=== PATIENT | male | born 1990 | race African-American/Black ===

== ENCOUNTER 2019-07-03 08:50 | Emergency (ER) | payer OTHER ==
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
[2019-07-03] MEDS ORDERED: 0.9 % SODIUM CHLORIDE 1,000 ML IV ONE (09:17)
[2019-07-03] MEDS ORDERED: METOPROLOL TARTRATE 5 MG/5 ML VIAL IV ONE (09:17)
--- NOTE | 2019-07-03 09:48 | Diagnostic Imaging Report ---
PATIENT MR#: [id number] PATIENT PATIENT NAME: BRIDGER BAUER DATE OF : 08/16/1999 REFERRING PHYSICIAN: Deena Myers EXAM DATE: 07/03/2019 ACCESSION NUMBER: [id number] EXAM DESCRIPTION: CHEST 1VIEW Exam: AP portable chest. History: Asthma. No previous studies are available for comparison. Lung mandujano are well aerated without aviva consolidation or effusion. Heart and mediastinal contour are normal. Impression: No aviva consolidation or effusion. Read by: Dr. Philipp Cuevas Transcribed by: Transcribed Date: Electronically signed by: Dr. Philipp Cuevas Date signed: 07/03/2019 9:47:34 AM
[2019-07-03 09:49] LABS: eGFR (Non-African) 59
[2019-07-03 09:53] LABS: BASOPHILS % 0.6 % (0.0-1.5); NEUTROPHILS # 14.8 # k/uL (1.4-7.7)
[2019-07-03] MEDS ORDERED: DEXTROSE 5 % AND 0.9 % NACL 1,000 ML IV ONE (10:07)
[2019-07-03 11:24] VITALS: BP 142/90
[2019-07-03 13:40] LABS: APPEARANCE,URINE CLEAR (CLEAR); COLOR,URINE YELLOW (YELLOW); OCCULT BLOOD,URINE 2+ (NEGATIVE)
== END 2019-07-03 11:15 | disposition home or self-care (01) ==
LOC: ED 08:50 → EDBD 08:50 → ED 11:15
DX: F15.10 Other stimulant abuse, uncomplicated (principal); E86.0 Dehydration
CPT/HCPCS: 71045; 80053; 81002; 84484; 85025; 93005; 96361; 96374; 99284; J3490; J7030; J7042; S1016